=== PATIENT | female | born 1970 | race Caucasian/White ===

== ENCOUNTER 2023-07-12 20:16 | Emergency (ER) | payer BC ==
[2023-07-12] MEDS: Aspirin 81 MG Tab.Chew PO ONE (20:27)
[2023-07-12] MEDS: Nitroglycerin 0.4 MG Tab.SL SL ONE (20:27)
[2023-07-12 20:51] LABS: BASOPHILS ABSOLUTE AUTO 0.11 K/uL (0.02-0.10); BASOPHILS PERCENT AUTO 1.5 % (0.0-0.5); EOSINOPHILS ABSOLUTE AUTO 0.23 K/uL (0.04-0.40); EOSINOPHILS PERCENT AUTO 3.1 % (1.0-5.0); HEMOGLOBIN 14.4 g/dL (11.5-16.5); LYMPHOCYTES ABSOLUTE AUTO 3.82 K/uL (1.50-4.00); LYMPHOCYTES PERCENT AUTO 51.8 % (20.0-40.0); MEAN CORPUSCULAR HGB CONC 34.3 g/dL (31.0-35.0); MEAN CORPUSCULAR VOLUME 90 fL (76-96); MEAN PLATELET VOLUME 10.5 fL (6.0-10.0); MONOCYTES ABSOLUTE AUTO 0.63 K/uL (0.20-0.80); MONOCYTES PERCENT AUTO 8.5 % (3.0-10.0); NEUTROPHILS ABSOLUTE AUTO 2.58 K/uL (2.00-7.50); NEUTROPHILS PERCENT AUTO 35.1 % (45.0-70.0); PLATELET COUNT,PLT 206 K/uL (150-500); RED BLOOD CELL COUNT 4.65 M/uL (3.80-5.80); RED CELL DISTRIBUTION WIDTH 13.2 % (11.0-16.0); WHITE BLOOD CELL COUNT,WBC 7.4 K/uL (4.0-11.0)
[2023-07-12 21:14] LABS: ALANINE AMINOTRANSFERASE,ALT 190 U/L (12-78); ALBUMIN 3.8 g/dL (3.4-5.0); ALKALINE PHOSPHATASE 130 U/L (46-116); ANION GAP 15.5 mmol/L (5.0-15.0); ASPARTATE AMNIOTRANSFERASE,AST 72 U/L (15-37); BILIRUBIN TOTAL 0.3 mg/dL (0.0-1.0); BLOOD UREA NITROGEN,BUN 14 mg/dL (8-26); BUN/CREATININE RATIO 16.7 (6-25); CALCIUM 9.6 mg/dL (8.5-10.1); CARBON DIOXIDE,CO2 26.4 mmol/L (21.0-32.0); CHLORIDE,CL 101 mmol/L (98-107); CREATININE 0.84 mg/dL (0.55-1.02); ESTIMATED GFR 84 mL/min (>60); GLUCOSE RANDOM 232 mg/dL (74-100); POTASSIUM,K 3.9 mmol/L (3.5-5.1); PROTEIN TOTAL,TP 7.5 g/dL (6.4-8.2); SODIUM,NA 139 mmol/L (136-145); TSH ULTRASENSITIVE 7.082 uIU/mL (0.358-3.740)
[2023-07-12 21:37] LABS: APPEARANCE,URINE CLEAR (CLEAR); BILIRUBIN,URINE NEGATIVE (NEGATIVE); COLOR,URINE YELLOW; GLUCOSE,URINE 500 mg/dL (NEGATIVE); KETONES,URINE NEGATIVE (NEGATIVE); LEUKOCYTE ESTERASE,URINE SMALL (NEGATIVE); NITRITE,URINE NEGATIVE (NEGATIVE); OCCULT BLOOD,URINE NEGATIVE (NEGATIVE); PH,URINE 5.5 (5.0-8.0); PROTEIN,URINE NEGATIVE (NEGATIVE); UROBILINOGEN,URINE 0.2 E.U./dL (0.2-1.0)
[2023-07-12 21:39] LABS: EPITHELIAL CELLS,URINE FEW /HPF; RBC,URINE NOT SEEN /HPF
== END 2023-07-12 22:05 | disposition home or self-care (01) ==
LOC: SUPCPDRO 20:16 → LB.ED 20:16
DX: F41.9 Anxiety disorder, unspecified (principal); R74.01 Elevation of levels of liver transaminase levels; R81 Glycosuria; E03.9 Hypothyroidism, unspecified; Z79.899 Other long term (current) drug therapy
CPT/HCPCS: 36415; 71045; 80053; 81001; 83690; 84443; 84484; 85025; 85379; 93005; 93010; 99283; 99285; A9270-GY

== ENCOUNTER 2023-09-18 12:54 | Emergency (ER) | payer BC | END 2023-09-18 14:25 | disposition home or self-care (01) | LOC: LB.ED 12:54 | DX: S82.832A Other fracture of upper and lower end of left fibula, initial encounter for closed fracture (principal); E78.00 Pure hypercholesterolemia, unspecified; E03.9 Hypothyroidism, unspecified; Z79.84 Long term (current) use of oral hypoglycemic drugs; Z79.890 Hormone replacement therapy; Z79.899 Other long term (current) drug therapy; X50.1XXA Overexertion from prolonged static or awkward postures, initial encounter | CPT/HCPCS: 73610-LT; 99283 ==

== ENCOUNTER 2024-06-27 20:10 | Emergency (ER) | payer BC | END 2024-06-27 23:08 | disposition home or self-care (01) | LOC: LB.ED 20:10 | DX: F12.10 Cannabis abuse, uncomplicated (principal); E03.9 Hypothyroidism, unspecified; Z79.899 Other long term (current) drug therapy; Z79.890 Hormone replacement therapy; E78.00 Pure hypercholesterolemia, unspecified | CPT/HCPCS: 99283; 99284; A0425; A0429 ==